=== PATIENT | male | born 1995 | race Two or more races ===

== ENCOUNTER 2020-01-28 07:07 | Emergency (ER) | payer OTHER ==
[~2020-01-28] VITALS: Ht 180.3 cm; Wt 90.7 kg
[2020-01-28 07:27] VITALS: BP 119/66
[2020-01-28] MEDS ORDERED: methylPREDNISolone SOD SUCC 125 MG/2 ML VL IM ONE (07:45)
[2020-01-28] MEDS ORDERED: cefTRIAXone SOD 1,000 MG VL IM ONE (07:45)
== END 2020-01-28 08:55 | disposition home or self-care (01) ==
LOC: ER 07:07
DX: J03.00 Acute streptococcal tonsillitis, unspecified (principal)
CPT/HCPCS: 71046; 87880; 96372; 99284; J0696; J2930